=== PATIENT | female | born 1965 | race Caucasian/White ===

== ENCOUNTER 2021-08-04 12:14 | Emergency (ER) | payer OTHER ==
[~2021-08-04] VITALS: Ht 149.9 cm; Wt 61.2 kg
[2021-08-04] MEDS ORDERED: TOPIRAMATE50 MG PO (12:56)
== END 2021-08-04 15:59 | disposition home or self-care (01) ==
LOC: ER 12:14
DX: B34.9 Viral infection, unspecified (principal); R53.81 Other malaise; Z20.822 Contact with and (suspected) exposure to COVID-19; Z88.6 Allergy status to analgesic agent; Z88.0 Allergy status to penicillin

== ENCOUNTER 2023-12-09 12:33 | Emergency (ER) | payer OTHER ==
[~2023-12-09] VITALS: Ht 162.6 cm; Wt 58.5 kg
[~2023-12-09 12:33] MED LIST: TOPIRAMATE50 MG PO
[2023-12-09] MEDS ORDERED: NORTRIPTYLINE H10 MG PO (13:14)
[2023-12-09 14:02] LABS: HEMATOCRIT 35.9 % (36.0-45.00); HEMOGLOBIN 12.6 g/dL (12.0-15.00); MEAN CELL VOLUME 88.4 fL (80.00-100.00); MEAN CORPUSCULAR HEMOGLOBIN 30.9 pg (27.00-32.0); PLATELET COUNT 266 K/uL (150-450); RED BLOOD COUNT 4.06 M/uL (4.00-6.00); RED CELL DISTRIBUTION WIDTH 13.2 % (11.5-14.5)
== END 2023-12-09 15:27 | disposition home or self-care (01) ==
LOC: ER 12:35
PROVIDERS: General Practice
DX: J06.9 Acute upper respiratory infection, unspecified (principal); G43.809 Other migraine, not intractable, without status migrainosus; Z88.6 Allergy status to analgesic agent; Z88.0 Allergy status to penicillin; Z20.822 Contact with and (suspected) exposure to COVID-19